=== PATIENT | female | born 1990 | race African-American/Black ===

== ENCOUNTER 2016-05-15 21:12 | Emergency (ER) | payer OTHER ==
[2016-05-15 21:27] VITALS: BP 102/65; BMI 25.0
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
--- NOTE | 2016-05-15 23:41 | CT ---
CT cervical spine without contrast Indication:Neck pain Comparison: Technique: Multiple axial images of the cervical spine were obtained from the skull base to the thor acic inlet without administration of IV contrast. Sagittal and coronal reformats were performed and reviewed. Radiation dose reduction techniques were performed utilizing adjustment for MA/kVP based on patient body size. Findings: Alignment of the cervical spine is maintained. No evidence for acute cortical disruption or subluxa tion can be seen. The posterior elements appear unremarkable. The prevertebral soft tissues are no rmal in their appearance. In addition, the surrounding paraspinous soft tissues are unremarkable. IMPRESSION: 1. No evidence for traumatic injury of the cervical spine. Reported By:
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
== END 2016-05-16 00:02 | disposition home or self-care (01) ==
LOC: ER 21:17
DX: S16.1XXA Strain of muscle, fascia and tendon at neck level, initial encounter (principal); S09.8XXA Other specified injuries of head, initial encounter; S00.83XA Contusion of other part of head, initial encounter; R51 Headache; V87.7XXA Person injured in collision between other specified motor vehicles (traffic), initial encounter
CPT/HCPCS: 36415; 70450; 70486; 72125; 99283

== ENCOUNTER 2016-06-24 20:39 | Emergency (ER) | payer OTHER ==
[2016-06-24 21:00] VITALS: BP 151/85; BMI 21.1
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
[2016-06-24 22:21] LABS: BASOPHILS % (AUTO) 0.4 % (0.2-1.0); EOSINOPHILS # (AUTO) 0.1 x10^3/uL (0.0-0.2); EOSINOPHILS % (AUTO) 1.7 % (0.9-2.9); HEMATOCRIT 37.2 % (36.0-47.0); HEMOGLOBIN 12.7 g/dL (12.0-16.0); LYMPHOCYTES # (AUTO) 2.9 X10^3/uL (1.3-2.9); LYMPHOCYTES % (AUTO) 35.4 % (21.0-51.0); MEAN CORPUSCULAR HEMOGLOBIN 26.3 pg (27.0-34.0); MEAN CORPUSCULAR HGB CONC 34.2 g/dL (33.0-35.0); MEAN CORPUSCULAR VOLUME 76.9 fL (80.0-100.0); MEAN PLATELET VOLUME 8.7 fL (7.4-11.0); MONOCYTES # (AUTO) 0.6 x10^3/uL (0.3-0.8); MONOCYTES % (AUTO) 7.4 % (0.0-13.0); NEUTROPHILS # (AUTO) 4.5 x10^3/uL (2.2-4.8); NEUTROPHILS % (AUTO) 55.1 % (42.0-75.0); PLATELET COUNT 193 X10^3/uL (150.0-450.0); RED BLOOD COUNT 4.83 X10^6/uL (3.5-5.4); RED CELL DISTRIBUTION WIDTH 14.5 % (11.6-16.5); WHITE BLOOD COUNT 8.2 X10^3/uL (3.6-10.0)
[2016-06-24 22:25] LABS: BLOOD UREA NITROGEN 6 mg/dL (7-18); CALCIUM 8.8 mg/dL (8.5-10.1); CARBON DIOXIDE 24.6 mmol/L (21-32); CHLORIDE 107 mmol/L (98-107); CREATININE 0.77 mg/dL (0.55-1.02); GLUCOSE 95 mg/dL (65-99); SODIUM 144 mmol/L (136-145); eGFR BLACK RACES > 60 (>60); eGFR NON BLACK RACES > 60 (>60)
[2016-06-24] MEDS ORDERED: K-LYTE EFFERVESCENT PO ONE (22:32)
[2016-06-24] MEDS ORDERED: K-DUR TAB 20 MEQ PO STA (23:18)
[2016-06-24] MEDS ORDERED: K-DUR TAB 20 MEQ PO ONE (23:22)
== END 2016-06-24 23:26 | disposition home or self-care (01) ==
LOC: ER 20:50
DX: E87.6 Hypokalemia (principal)
CPT/HCPCS: 36415; 80048; 80307; 85025; 99283; 99285; G0434

== ENCOUNTER 2016-07-04 16:59 | Emergency (ER) | payer OTHER ==
[2016-07-04 17:04] VITALS: BP 92/67; BMI 21.9
[2016-07-04] MEDS ORDERED: TORADOL 60 MG VIAL IM ONE (19:32)
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
[2016-07-04] MEDS ORDERED: TORADOL 60 MG VIAL ONE (19:36)
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
== END 2016-07-04 20:33 | disposition home or self-care (01) ==
LOC: ER 17:18
DX: S43.401A Unspecified sprain of right shoulder joint, initial encounter (principal); S46.911A Strain of unspecified muscle, fascia and tendon at shoulder and upper arm level, right arm, initial encounter; Y33.XXXA Other specified events, undetermined intent, initial encounter; Y92.9 Unspecified place or not applicable
CPT/HCPCS: 73030; 96372; 99282; J1885

== ENCOUNTER 2016-10-25 20:04 | Emergency (ER) | payer OTHER ==
[2016-10-25 20:20] VITALS: BP 110/71; BMI 21.7
--- NOTE | 2016-10-25 21:00 | DR.GENAD ---
HPI - PCP Primary Care Physician: ANILA - Complaint/Symptoms Chief Complaint Doctors Comments: Patient states she has been coughing for the past three weeks witn cough with thick sputum production with cold and cough. She denies fever, nausea, vomiting or hematuria. States she has coughed up blood in her sputum today and saw some blood in her urine when she wiped. States she went to the bathroom and had a bowel movement and urinated at the same time and saw blood on the tissure when she wiped. States she is unsure if it was in her urine or bowels. states she had an appointment with Dr. Ewing today but she did not have any transportation. She has been off her Depro provera and she missed her last shot. States he six month old son has had a cold and has been coughing in her face. She smokes one pack daily for seven years. States she is a patient of Dr. High and has an appointment Friday for him. She has been having SOB but denies wheezing. States she has not had any problems with nirav previously. She is having suprapubic pain. Chief Complaint:: FEVER, COUGHING UP GREEN STUFF, COUGHING UP BLOOD, NOSE RUNNING, COUGHING UP SO HARD FEELS LIKE I'M GOING TO THROW UP. PATIENT VOIDED AND HAD A BOWEL MOVEMENT SEEN BLOOD IN THE TOILET. PATIENT DOES NOT KNOW IF IT WAS FROM URINE OR STOOL.LEG PAIN. Self Treatment fo Chief Complaint: COUGH MEDICINE, EATING PEPERMINT - Nurses notes reviewed Nurses Notes Review: Yes - Source History Provided: Patient - Mode of Arrival Mode of Arrival: Ambulatory - Timing Onset of Chief Complaint: 10/21/16 Came on: Gradually - Duration Duration: Intermittent How lon Duration: Weeks - Location Location: suprapubic pain - Severity Severity: Moderate - Modifying Factors Worsens:: movment Improves:: nothing PMH - PMH Past Medical History: Yes Past Medical History: Anxiety, Depression Past Medical History Comment: BACK PAIN Past Surgical History: No - Family History History of Family Medical Conditions: Yes Family Medical History: Diabetes Mellitus, Cancer, [place], Hypertension - Social History Does patient currently use any type of tobacco product: Yes Have you used tobacco products in the last 12 months: No Type of Tobacco Use: Cigarettes How many years tobacco product used: 7 Does any household member use tobacco: No Alcohol Use: Rarely Do you use any recreational Drugs:: No Lives With: Family Lives Where: Home - infectious screening In the last 2 months have you had wt loss of >10#?: NO Have you had fever, night sweats or hemotysis?: No Have you traveled outside the country in the last 6 months?: No Isolation: Standard ROS - Review of Systems Constitutional: No Symptoms Reported. negative: See HPI, Chills, Diaphoresis, Fever, Malaise, Weakness, Irritable, Fatigue, Loss of Appetite, Other Eyes: No Symptoms Reported ENTM: No Symptoms Reported, Nose Discharge, Nose Congestion. negative: See HPI , Ear Pain, Ear Discharge, Pulling on Ears, Hearing Loss, Nose Pain, Epistaxis, Mouth Pain, Mouth Swelling, Loose Teeth, Drooling, Throat Pain, Throat Swelling , Ear Foreign Body Respiratoy: No Symptoms Reported, Productive Cough, Short of Breath Cardiovascular: No Symptoms Reported. negative: See HPI, Chest Pain, Edema, Palpitations, Syncope, Cyanosis, Skin Mottling, Other Gastrointestinal/Abdominal: No Symptoms Reported, Abdominal Pain. negative: See HPI, Constipation, Diarrhea, Nausea, Vomiting, Food Intolerance, Other Genitourinary: No Symptoms Reported. negative: See HPI, Discharge, Dysuria, Frequency, Hematuria, Pain, Bleeding, Other Neurological: No Symptoms Reported Musculoskeletal: No Symptoms Reported Integumentary: No Symptoms Reported. negative: See HPI, Change in Color, Change in Hair/Nails, Dryness, Lesions, Lumps, Rash, Itching, Wound, Bruises, Juandice, Other Endocrine: No Symptoms Reported Psychiatric: No Symptoms Reported. negative: See HPI, Anxiety, Depression, Hallucinations, Excessive crying, Suicidal, Other PE - Vital Signs Vitals: Temperature 98.2 F Pulse Rate 102 Respiratory Rate 20 Blood Pressure [Left Arm] 99/62 Blood Pressure 110/71 O2 Sat by Pulse Oximetry 100 - General Limitations: No Limitations. negative: Language Barrier, Altered Mental Status , Physical Limitation, Other General Appearance: Alert, In No Apparent Distress. negative: Appears Intoxicated, Anxious, Lethargic, Obtunded, In Distress, Obese, Cachectic, Other - Head Head Exam: Normal Inspection, Atraumatic, Normocephalic - Eyes Eye exam: Normal Appearance, PERRL, EOMI. negative: Scleral Icterus, Conjunctival Injection, Nystagmus, Miosis, Mydrasis, Periorbital Swelling, Periorbital Tenderness, Other - ENT ENT Exam: Normal Exam, Normal Oropharynx, Normal External Ear Exam, Mucous Membranes Moist, TM's Normal Bilaterally External Ear Exam: Normal External Inspection. negative: Auricular Hematoma, Auricular Trauma, Mastoid Tenderness, Pain with Movement, External Tenderness, Periauricular Adenopathy, Other TM/Canal Exam: Bilateral Normal Nose Exam: Normal Nose Exam Mouth Exam: Normal Inspection Throat Exam: Normal Inspection. negative: Tonsillar Erythema, Tonsillomegaly, Tonsillar Exudate, R Peritonsillar Mass, L Peritonsillar Mass, Muffled Voice, Other - Neck Neck Exam: Normal Inspection, Full ROM, Trachea Midline - Chest Chest Inspection: Normal Inspection, Symmetric Chest Wall Rise - Respiratory Respiratory Exam: Normal Lung Sounds Bilat. negative: Accessory Muscle Use, Chest Wall Tenderness, Prolonged Expiratory Phase, Respiratory Distress, Stridor , Other Respiratory Exam: Bilateral Clear to Auscultation - Cardiovascular Cardiovascular Exam: Regular Rate, Normal Rhythm. negative: Bradycardia, Tachycardia, Irregular Rhythm, Normal Heart Sounds, Systolic Murmur, Diastolic Murmur, Rubs, Gallop, Clicks, JVD, +S1, +S2, +S3, +S4, Other - Abdominal Exam Abdominal Exam: Normal Inspection, Normal Bowel Sounds, Soft Abdominal Tenderness: Epigastrium, Moderate - Extremities Extremities Exam: Normal Inspection, Full ROM, Normal Capillary Refill. negative: Tenderness, Edema, Joint Swelling, Calf Tenderness, Other - Back Back Exam: Normal Inspection, Full ROM. negative: Tenderness, (R) CVA Tenderness, (L) CVA Tenderness, Muscle Spasm, Paraspinal Tenderness, Vertebral Tenderness, Rashes, (R) Sciatic Notch Tenderness, (L) Sciatic Notch Tendern, (R ) Straight Leg Raise, (L) Straight Leg Raise, Other - Neurologic Neurological Exam: Alert, Oriented X3, CN II-XII Intact, Normal Gait, Reflexes Normal - Psychiatric Psychiatric Exam: Normal Affect, Normal Mood. negative: Depressed, Agitated, Anxious, Flat Affect, Manic, Homicidal Ideation, Suicidal Ideation, Other - Skin Skin Exam: Warm, Dry, Intact, Normal Color ROR - Labs Reviewed Laboratory Results Reviewed?: Yes (all labs and x-ray results reviewed and discussed with patient) Result Diagrams: 10/25/16 21:10/25/16 21:01 Laboratory: WBC 8.6 X10^3/uL (3.6-10.0) 10/25/16 21: RBC 4.73 X10^6/uL (3.5-5.4) 10/25/16 21:01 Hgb 13.0 g/dL (12.0-16.0) 10/25/16 21:01 Hct 37.4 % (36.0-47.0) 10/25/16 21:01 MCV 79.1 fL (80.0-100.0) L 10/25/16 21:01 MCH 27.4 pg (27.0-34.0) 10/25/16 21: MCHC 34.7 g/dL (33.0-35.0) 10/25/16 21: RDW 14.4 % (11.6-16.5) 10/25/16 21:01 Plt Count 206 X10^3/uL (150.0-450.0) 10/25/16 21:01 MPV 9.3 fL (7.4-11.0) 10/25/16 21:01 Neut % 70.5 % (42.0-75.0) 10/25/16 21: Lymph % 21.1 % (21.0-51.0) 10/25/16 21:01 Corson % 4.7 % (0.0-13.0) 10/25/16 21:01 Eos % 2.6 % (0.9-2.9) 10/25/16 21:01 Baso % 1.1 % (0.2-1.0) H 10/25/16 21:01 Neut # 6.1 x10^3/uL (2.2-4.8) H 10/25/16 21:01 Lymph # 1.8 X10^3/uL (1.3-2.9) 10/25/16 21:01 Corson # 0.4 x10^3/uL (0.3-0.8) 10/25/16 21:01 Eos # 0.2 x10^3/uL (0.0-0.2) 10/25/16 21:01 Baso # 0.1 X10^3/uL (0.0-0.1) 10/25/16 21:01 Absolute Nucleated RBC 0.0 /100WBC 10/25/16 21:01 Sodium 140 mmol/L (136-145) 10/25/16 21:01 Corrected Sodium TNP 10/25/16 21:01 Potassium 4.1 mmol/L (3.5-5.1) 10/25/16 21:01 Chloride 105 mmol/L (98-107) 10/25/16 21:01 Carbon Dioxide 27.5 mmol/L (21-32) 10/25/16 21:01 BUN 7 mg/dL (7-18) 10/25/16 21:01 Creatinine 0.89 mg/dL (0.55-1.02) 10/25/16 21:01 Est GFR (MDRD) Af Amer > 60 (>60) 10/25/16 21:01 Est GFR (MDRD) Non-Af > 60 (>60) 10/25/16 21:01 Glucose 85 mg/dL (65-99) 10/25/16 21:01 Calcium 9.0 mg/dL (8.5-10.1) 10/25/16 21:01 Corrected Calcium TNP 10/25/16 21:01 Total Bilirubin 0.10 mg/dL (0.2-1.0) L 10/25/16 21:01 AST 16 Units/L (15-37) 10/25/16 21:01 ALT 23 Units/L (12-78) 10/25/16 21:01 Alkaline Phosphatase 79 Units/L (46-116) 10/25/16 21:01 Total Protein 7.7 g/dL (6.4-8.2) 10/25/16 21:01 Albumin 3.6 g/dL (3.4-5.0) 10/25/16 21:01 Globulin 4.1 g/dL (2.5-4.5) 10/25/16 21:01 Albumin/Globulin Ratio 0.9 Ratio (1.1-2.1) L 10/25/16 21:01 Amylase 55 Units/L (25-115) 10/25/16 21:01 Lipase 80 Units/L (73-393) 10/25/16 21:01 HCG, Qual Negative <10 mIU/mL 10/25/16 21:01 Specimen Type Clean catch urine 10/25/16 20:46 Urine Color Yellow (YELLOW) 10/25/16 20:46 Urine Appearance Slightly hazy (CLEAR) 10/25/16 20:46 Urine pH 8.0 (5.0 - 8.0) 10/25/16 20:46 Ur Specific Debary 1.015 (1.000-1.030) 10/25/16 20:46 Urine Protein Negative (NEGATIVE) 10/25/16 20:46 Urine Glucose (UA) Negative (NEGATIVE) 10/25/16 20:46 Urine Ketones Negative (NEGATIVE) 10/25/16 20:46 Urine Occult Blood Negative (NEGATIVE) 10/25/16 20:46 Urine Nitrite Negative (NEGATIVE) 10/25/16 20:46 Urine Bilirubin Negative (NEGATIVE) 10/25/16 20:46 Urine Urobilinogen 1+ (NORMAL) 10/25/16 20:46 Ur Leukocyte Esterase 1+ (NEGATIVE) 10/25/16 20:46 Urine RBC 0-3 /HPF (NEGATIVE) 10/25/16 20:46 Urine WBC 10-15 /HPF (NEGATIVE) 10/25/16 20:46 Ur Squamous Epith Cells Moderate /HPF (NEGATIVE) 10/25/16 20:46 Urine Bacteria 1+ /HPF (NEGATIVE) 10/25/16 20:46 Ur Culture Indicated? Yes/culture set up 10/25/16 20:46 Urine Opiates Screen Negative (NEG=<300) 10/25/16 20:46 Urine Methadone Screen Negative (NEG=<300) 10/25/16 20:46 Ur Barbiturates Screen Positive (NEG=<200) A 10/25/16 20:46 Ur Phencyclidine Scrn Negative (NEG=<25) 10/25/16 20:46 Ur Amphetamines Screen Negative (NEG=<1000) 10/25/16 20:46 U Benzodiazepines Scrn Positive (NEG=<200) A 10/25/16 20:46 Urine Cocaine Screen Negative (NEG=<300) 10/25/16 20:46 U Marijuana (THC) Screen Negative (NEG=<50) 10/25/16 20:46 - XRAY XRAY Interpreted by: Radiologist (CT abdomen/pelvis: No acute abnormality. Vague patchy opacity in the left lung base suggest early pneumonia) XRAY Findings: CXR: no acute cardiopulmonary changes noted - Diagnosis Discharge Problem: Urinary tract infection Pneumonia Qualifiers: Pneumonia type: due to unspecified organism - Discharge Plan Disposition: 01 HOME, SELF-CARE Condition: Stable Prescriptions: Guaifenesin-Codeine [ROBITUSSIN AC SYRUP (W/CODEINE) *] 10 ml PO Q6H PRN #120 ml PRN Reason: Cough/Congestion Levofloxacin [LEVAQUIN TAB 500 MG *] 500 mg PO DAILY #10 tab - Follow ups/Referrals Follow ups/Referrals: Crystal HIGH [Primary Care Provider] - 3 days - Instructions Instructions: Urinary Tract Infection, Adult, Community-Acquired Pneumonia, Adult, [id number]
[2016-10-25 21:12] LABS: BASOPHILS # (AUTO) 0.1 X10^3/uL (0.0-0.1); BASOPHILS % (AUTO) 1.1 % (0.2-1.0); EOSINOPHILS # (AUTO) 0.2 x10^3/uL (0.0-0.2); EOSINOPHILS % (AUTO) 2.6 % (0.9-2.9); HEMATOCRIT 37.4 % (36.0-47.0); LYMPHOCYTES # (AUTO) 1.8 X10^3/uL (1.3-2.9); LYMPHOCYTES % (AUTO) 21.1 % (21.0-51.0); MEAN CORPUSCULAR HEMOGLOBIN 27.4 pg (27.0-34.0); MEAN CORPUSCULAR HGB CONC 34.7 g/dL (33.0-35.0); MEAN CORPUSCULAR VOLUME 79.1 fL (80.0-100.0); MEAN PLATELET VOLUME 9.3 fL (7.4-11.0); MONOCYTES # (AUTO) 0.4 x10^3/uL (0.3-0.8); MONOCYTES % (AUTO) 4.7 % (0.0-13.0); NEUTROPHILS # (AUTO) 6.1 x10^3/uL (2.2-4.8); NEUTROPHILS % (AUTO) 70.5 % (42.0-75.0); PLATELET COUNT 206 X10^3/uL (150.0-450.0); RED BLOOD COUNT 4.73 X10^6/uL (3.5-5.4); RED CELL DISTRIBUTION WIDTH 14.4 % (11.6-16.5); WHITE BLOOD COUNT 8.6 X10^3/uL (3.6-10.0)
[2016-10-25 21:16] LABS: BILIRUBIN,URINE NEGATIVE (NEGATIVE); BLOOD/HEMOGLOBIN,URINE NEGATIVE (NEGATIVE); GLUCOSE, URINE NEGATIVE (NEGATIVE); KETONES,URINE NEGATIVE (NEGATIVE); LEUKOCYTE ESTERASE ,URINE 1+ (NEGATIVE); NITRITES,URINE NEGATIVE (NEGATIVE); PROTEIN,URINE NEGATIVE (NEGATIVE); UROBILINOGEN,URINE 1+ (NORMAL)
[2016-10-25 21:24] LABS: ALANINE AMINOTRANSFERASE 23 Units/L (12-78); ALBUMIN 3.6 g/dL (3.4-5.0); ALKALINE PHOSPHATASE 79 Units/L (46-116); ASPARTATE AMINO TRANSFERASE 16 Units/L (15-37); BLOOD UREA NITROGEN 7 mg/dL (7-18); CARBON DIOXIDE 27.5 mmol/L (21-32); CHLORIDE 105 mmol/L (98-107); CREATININE 0.89 mg/dL (0.55-1.02); SODIUM 140 mmol/L (136-145); TOTAL PROTEIN 7.7 g/dL (6.4-8.2); eGFR BLACK RACES > 60 (>60); eGFR NON BLACK RACES > 60 (>60)
[2016-10-25 21:37] LABS: APPEARANCE,URINE SLIGHTLY HAZY (CLEAR); BACTERIA,URINE 1+ /HPF (NEGATIVE); COLOR,URINE YELLOW (YELLOW); RBC,URINE 0-3 /HPF (NEGATIVE); SQUAMOUS EPITHELIAL CELL,UR MODERATE /HPF (NEGATIVE)
[2016-10-25 21:39] LABS: SERUM PREGNANCY TEST, QUAL NEGATIVE <10 mIU/mL
--- NOTE | 2016-10-25 21:44 | CT ---
CT abdomen and pelvis without contrast Indication: Coughing with hematemesis. Pelvic pain chronically. Technique: Helical images through the abdomen and pelvis without contrast. Coronal and sagittal refor mats provided. Findings: No similar priors available. Review of bone windows demonstrates no destructive osseous les ion. [id number] limited in motion limited images through lower chest shows patchy left lower lung opaci ty, probably dependent atelectasis but early pneumonia not completely excluded given history. Abdomen: Within limits of a noncontrast study, the liver, spleen, adrenal glands and pancreas appear grossly normal. The small bowel demonstrates no acute abnormality. No acute colonic abnormality seen. Appendix is normal. Vasculature is free of plaque. Left kidney appears normal without hydroureterone phrosis. Motion artifact obscures some detail but there is questionable fullness to the right renal c ollecting system. No convincing obstructing stone identified. No severe hydronephrosis seen. Stomach appears grossly normal. The gallbladder is probably collapse, not well seen. Pelvis: Urinary bladder and rectum are normal. Uterus and adnexal region show no acute abnormality. Impression: 1. Motion limited study and lack of contrast limited study shows no convincing acute abnormality to e xplain the patient's pelvic pain. Correlate with pelvic exam findings. 2. Vague patchy opacity in the left lung base is probably accentuated due to motion but correlate cli nically for signs of early pneumonia. Reported By:
[2016-10-25 21:57] LABS: AMYLASE 55 Units/L (25-115); LIPASE 80 Units/L (73-393)
[2016-10-25] MEDS ORDERED: ROCEPHIN VIAL 1 GM IM ONE (22:36)
[2016-10-25] MEDS ORDERED: ROBITUSSIN AC PO STA (22:37)
[2016-10-25] MEDS ORDERED: LEVAQUIN TAB 500 MG ONE (22:54)
[2016-10-25] MEDS ORDERED: ROBITUSSIN AC ONE (22:55)
[2016-10-25] MEDS ORDERED: ROCEPHIN VIAL 1 GM ONE (22:55)
[2016-10-25] MEDS ORDERED: LEVAQUIN TAB 500 MG PO SCH (23:00)
--- NOTE | 2016-10-25 23:35 | RAD ---
Chest PA and lateral Indication: Cough with thick sputum. Findings: There is no pneumothorax, effusion or consolidation. Heart size is normal. Impression: No acute chest process. Reported By:
== END 2016-10-25 23:15 | disposition home or self-care (01) ==
LOC: ER 20:24
DX: J18.9 Pneumonia, unspecified organism (principal); N39.0 Urinary tract infection, site not specified; R10.13 Epigastric pain
CPT/HCPCS: 36415; 71020; 74176; 80053; 80307; 81001; 82150; 83690; 84703; 85025; 87086; 96372; 99282; 99283; G0434; J0696

== ENCOUNTER 2016-10-26 00:20 | Emergency (ER) | payer OTHER ==
[2016-10-26] MEDS ORDERED: ADRENALINE CHL INJ IM ONE (00:30)
[2016-10-26] MEDS ORDERED: ADRENALINE CHL INJ ONE (00:31)
[2016-10-26] MEDS ORDERED: BENADRYL INJ 50 MG VIAL IVP STA (00:31)
[2016-10-26] MEDS ORDERED: PEPCID 20 MG IV PREMIX* 20 MG/50 ML BAG IV ONE ×2 (00:32→00:42)
[2016-10-26] MEDS ORDERED: SOLU-Medrol 125 MG VIAL IVP ONE (00:32)
[2016-10-26 00:34] VITALS: BMI 21.7
--- NOTE | 2016-10-26 00:34 | DR.GENAD ---
HPI - Complaint/Symptoms Chief Complaint Doctors Comments: Patient states she has been itching and has hives since walking home after getting a Rocephin shot and Levaquin for infection. States she has had problems with antibiotics when she was and they usually give her ampicillin. She denies SOB, chest pain, cold, cough or wheezing. States she has been itching with hives on her back, arms and legs. She has not taken any medicines for the rash. She denies fever, chills, nausea or vomiting. - Nurses notes reviewed Nurses Notes Review: Yes - Source History Provided: Patient, Family Member - Mode of Arrival Mode of Arrival: Ambulatory - Timing Came on: Gradually - Duration Duration: Constant How lon Duration: Hours - Location Location: diffusely arms and legs - Modifying Factors Worsens:: nothing Improves:: nothing PMH - PMH Past Medical History: Anxiety, Depression Past Surgical History: No - Family History Family Medical History: Diabetes Mellitus, Cancer, [place], Hypertension - Social History Do you use any recreational Drugs:: No ROS - Review of Systems Constitutional: No Symptoms Reported. negative: See HPI, Chills, Diaphoresis, Fever, Malaise, Weakness, Irritable, Fatigue, Loss of Appetite, Other Eyes: No Symptoms Reported. negative: See HPI, Eye Pain, Blurred Vision, Tearing, Discharge, Photophobia, Diplopia, Other ENTM: No Symptoms Reported Respiratoy: No Symptoms Reported, Non-Productive Cough Cardiovascular: No Symptoms Reported. negative: See HPI, Chest Pain, Edema, Palpitations, Syncope, Cyanosis, Skin Mottling, Other Gastrointestinal/Abdominal: No Symptoms Reported. negative: See HPI, Abdominal Pain, Constipation, Diarrhea, Nausea, Vomiting, Food Intolerance, Other Genitourinary: No Symptoms Reported. negative: See HPI, Discharge, Dysuria, Frequency, Hematuria, Pain, Bleeding, Other Neurological: No Symptoms Reported Musculoskeletal: No Symptoms Reported. negative: See HPI, Back Pain, Gout, Joint Pain, Joint Swelling, Muscle Pain, Muscle Stiffness, Neck Pain, Right, Left, Neck, Chest wall, Rib(s), Back, Shoulder, Arm, Elbow, Forearm, Wrist, Hand , Pelvis, Hip, Leg, Knee, Ankle, Foot, Other Integumentary: No Symptoms Reported, Rash, Itching (diffuse hives) Hematologic/Lymphatic: No Symptoms Reported. negative: See HPI, Anemia, Blood Clots, Easy Bleeding, Easy Bruising, Swollen Glands, Lymphadenopathy, Other Endocrine: No Symptoms Reported Psychiatric: No Symptoms Reported. negative: See HPI, Anxiety, Depression, Hallucinations, Excessive crying, Suicidal, Other PE - Vital Signs Vitals: Blood Pressure [Left Arm] 99/62 Blood Pressure 110/71 - General Limitations: No Limitations General Appearance: Alert, In Distress (mild) - Head Head Exam: Normal Inspection, Atraumatic, Normocephalic - Eyes Eye exam: Normal Appearance, PERRL, EOMI. negative: Scleral Icterus, Conjunctival Injection, Nystagmus, Miosis, Mydrasis, Periorbital Swelling, Periorbital Tenderness, Other - ENT ENT Exam: Normal Exam, Normal Oropharynx, Normal External Ear Exam, Mucous Membranes Moist, TM's Normal Bilaterally External Ear Exam: Normal External Inspection TM/Canal Exam: Bilateral Normal Nose Exam: Normal Nose Exam Mouth Exam: Normal Inspection. negative: Drooling, Trismus, Lip Swelling, Tongue Elevation, Tongue Swelling, Laceration, Other Throat Exam: Normal Inspection - Neck Neck Exam: Normal Inspection, Full ROM, Trachea Midline. negative: Tenderness, Meningismus, Lymphadenopathy, Thyromegaly, Other - Chest Chest Inspection: Normal Inspection, Symmetric Chest Wall Rise. negative: Tenderness, Rash, Abscess, Other - Respiratory Respiratory Exam: Normal Lung Sounds Bilat Respiratory Exam: Bilateral Clear to Auscultation - Cardiovascular Cardiovascular Exam: Regular Rate, Normal Rhythm, Normal Heart Sounds - Abdominal Exam Abdominal Exam: Normal Inspection, Normal Bowel Sounds, Soft Abdominal Tenderness: negative: RUQ, RLQ, LUQ, LLQ, Epigastrium, Suprapubic, Diffuse, Mild, Moderate, Severe, Other - Extremities Extremities Exam: Normal Inspection, Full ROM, Normal Capillary Refill. negative: Tenderness, Edema, Joint Swelling, Calf Tenderness, Other - Back Back Exam: Normal Inspection, Full ROM. negative: Tenderness, (R) CVA Tenderness, (L) CVA Tenderness, Muscle Spasm, Paraspinal Tenderness, Vertebral Tenderness, Rashes, (R) Sciatic Notch Tenderness, (L) Sciatic Notch Tendern, (R ) Straight Leg Raise, (L) Straight Leg Raise, Other - Neurologic Neurological Exam: Alert, Oriented X3, CN II-XII Intact, Normal Gait, Reflexes Normal - Psychiatric Psychiatric Exam: Normal Affect, Normal Mood. negative: Depressed, Agitated, Anxious, Flat Affect, Manic, Homicidal Ideation, Suicidal Ideation, Other - Skin Skin Exam: Warm, Dry, Intact, Normal Color, Rash (diffuse hives arms, legs, abdomen and back) Course - Reevaluation 1st: Improved - Education/Counseling Education/Counseling: Patient, Family Educated On: Treatment, Diagnosis, Needs for Follow Up - Diagnosis Discharge Problem: Allergic reaction caused by a drug, Pneumonia - Discharge Plan Disposition: HOME, SELF-CARE Condition: Stable Prescriptions: Amoxicillin & Pot Clavulanate [AUGMENTIN TAB 875 mg/125 mg *] 1 tab PO BID #20 tab Diphenhydramine HCl [BENADRYL 50 MG CAP *] 50 mg PO Q8H #30 cap Loratadine [Claritin] 10 mg PO DAILY #30 tab Ranitidine HCl [ZANTAC TAB 150 MG *] 150 mg PO BID #40 tab - Follow ups/Referrals Follow ups/Referrals: Crystal HIGH [Primary Care Provider] - 3 days - Instructions Instructions: Allergies, [id number], Angioedema, Pruritus
[2016-10-26 00:39] VITALS: BP 101/67
[2016-10-26] MEDS ORDERED: SOLU-Medrol 125 MG VIAL ONE (00:43)
[2016-10-26] MEDS ORDERED: BENADRYL INJ 50 MG VIAL ONE (00:43)
== END 2016-10-26 01:32 | disposition home or self-care (01) ==
LOC: ER 00:20
DX: J18.9 Pneumonia, unspecified organism (principal); T78.40XA Allergy, unspecified, initial encounter
CPT/HCPCS: 96365; 96372; 96374; 96375; 99282; 99283; A4222; S0028; J0170; J1200; J2930

== ENCOUNTER 2017-03-16 15:55 | Emergency (ER) | payer OTHER ==
[2017-03-16 16:05] VITALS: BP 116/74; BMI 20.9
--- NOTE | 2017-03-16 16:44 | RAD ---
Indication: Pain Exam: Right ankle series Technique: AP, lateral, and oblique views. Findings: The ankle mortise is intact. No fracture or dislocation is seen. There is moderate soft tis roma swelling around the ankle extending laterally. Impression: Soft tissue swelling around the ankle with no acute bony abnormality seen. Reported By:
--- NOTE | 2017-03-16 16:45 | RAD ---
Indication: Pain Exam: Left hand series. Technique: AP, lateral, and oblique views. Findings: No fracture dislocation is seen. The joint spaces are intact. The carpal bones are intact. The soft tissues are normal. Impression: No abnormality seen. Reported By:
--- NOTE | 2017-03-16 16:56 | DR.GENAD ---
HPI - PCP Primary Care Physician: NFD - Complaint/Symptoms Chief Complaint Doctors Comments: Patient states that she hurt her left thumb 3- 4 months ago and it still hurts. Chief Complaint:: PT C/O RT ANKLE PAIN AND LT THUMB PAIN. PT STATES SHE ROLLED HER ANKLE LAST NIGHT. PT STATES HER ANKLE HURTS REALLY BAD. - Source History Provided: Patient - Mode of Arrival Mode of Arrival: Ambulatory - Timing Onset of Chief Complaint: 03/15/17 PMH - PMH Past Medical History: Yes Past Medical History: Anxiety, Depression Past Surgical History: No - Family History History of Family Medical Conditions: Yes Family Medical History: Diabetes Mellitus, Cancer, [place], Hypertension - Social History Does patient currently use any type of tobacco product: Yes Have you used tobacco products in the last 12 months: Yes Type of Tobacco Use: Cigarettes Does any household member use tobacco: Yes Alcohol Use: None Do you use any recreational Drugs:: No Lives With: Family Lives Where: Home - infectious screening In the last 2 months have you had wt loss of >10#?: NO Have you had fever, night sweats or hemotysis?: No Have you traveled outside the country in the last 6 months?: No Isolation: Standard ROS - Review of Systems Eyes: No Symptoms Reported ENTM: No Symptoms Reported Respiratoy: No Symptoms Reported Cardiovascular: No Symptoms Reported Gastrointestinal/Abdominal: No Symptoms Reported Genitourinary: No Symptoms Reported Neurological: No Symptoms Reported Musculoskeletal: Ankle (right ankle and left thumb) Integumentary: No Symptoms Reported Hematologic/Lymphatic: No Symptoms Reported Endocrine: No Symptoms Reported Psychiatric: No Symptoms Reported All Other Systems: Reviewed and Negative PE - Vital Signs Vitals: Temperature 98.1 F Pulse Rate 103 Respiratory Rate 20 Blood Pressure [Left Arm] 99/62 Blood Pressure 116/74 O2 Sat by Pulse Oximetry 99 - General General Appearance: Alert, In No Apparent Distress - Head Head Exam: Normal Inspection, Atraumatic - Eyes Eye exam: Normal Appearance, PERRL, EOMI - ENT ENT Exam: Normal Exam External Ear Exam: Normal External Inspection TM/Canal Exam: Bilateral Normal Nose Exam: Normal Nose Exam Mouth Exam: Normal Inspection Throat Exam: Normal Inspection - Neck Neck Exam: Normal Inspection, Full ROM - Chest Chest Inspection: Normal Inspection - Respiratory Respiratory Exam: Normal Lung Sounds Bilat Respiratory Exam: Bilateral Clear to Auscultation - Cardiovascular Cardiovascular Exam: Regular Rate, Normal Rhythm - Abdominal Exam Abdominal Exam: Normal Inspection, Normal Bowel Sounds Abdominal Tenderness: negative: RUQ, RLQ, LUQ, LLQ, Epigastrium, Suprapubic, Diffuse, Mild, Moderate, Severe, Other - Extremities Extremities Exam: Joint Swelling (right ankle), Other (left thumb pain w/o swelling) - Back Back Exam: Normal Inspection - Neurologic Neurological Exam: Alert, Oriented X3, CN II-XII Intact - Psychiatric Psychiatric Exam: Normal Affect, Normal Mood - Skin Skin Exam: Warm, Dry, Intact ROR - XRAY XRAY Interpreted by: Radiologist (Thumb: no abnormality, Right Ankle: soft tissue swelling w/o fracture) - Diagnosis Discharge Problem: Right ankle sprain Qualifiers: Encounter type: initial encounter Involved ligament of ankle: tibiofibular ligament Qualified Code(s): S93.431A - Sprain of tibiofibular ligament of right ankle, initial encounter - Discharge Plan Condition: Stable - Follow ups/Referrals Follow ups/Referrals: NFD,None [Primary Care Provider] - 3 days - Instructions
== END 2017-03-16 17:10 | disposition home or self-care (01) ==
LOC: ER 15:55
DX: S93.431A Sprain of tibiofibular ligament of right ankle, initial encounter (principal); Y33.XXXA Other specified events, undetermined intent, initial encounter; Y92.9 Unspecified place or not applicable
CPT/HCPCS: 73130; 73610; 99282

== ENCOUNTER 2017-04-03 15:53 | Emergency (ER) | payer OTHER ==
[2017-04-03 16:04] VITALS: BP 113/71; BMI 20.3
[2017-04-03] MEDS ORDERED: TORADOL 60 MG VIAL IM ONE (16:52)
--- NOTE | 2017-04-03 16:52 | DR.GENAD ---
HPI - PCP Primary Care Physician: NFD - Complaint/Symptoms Chief Complaint Doctors Comments: Low back back pain related to lifting at work. Other complain is of a possible lump in her right breast. She noticed this yesterday. She denies galactorrhea. 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 - Nurses notes reviewed Nurses Notes Review: Yes - Source History Provided: Patient - Mode of Arrival Mode of Arrival: Ambulatory - Timing Onset of Chief Complaint: 04/02/17 PMH - PMH Past Medical History: No Past Medical History: Anxiety, Depression Past Surgical History: No - Family History History of Family Medical Conditions: No Family Medical History: Diabetes Mellitus, Cancer, [place], Hypertension - Social History Does patient currently use any type of tobacco product: Yes Have you used tobacco products in the last 12 months: Yes Type of Tobacco Use: None How many years tobacco product used: 9 Does any household member use tobacco: No Alcohol Use: None Do you use any recreational Drugs:: No Lives With: Family Lives Where: Home - infectious screening In the last 2 months have you had wt loss of >10#?: NO Have you had fever, night sweats or hemotysis?: No Have you traveled outside the country in the last 6 months?: No Isolation: Standard ROS - Review of Systems Constitutional: No Symptoms Reported Eyes: No Symptoms Reported ENTM: No Symptoms Reported Respiratoy: No Symptoms Reported Cardiovascular: No Symptoms Reported Gastrointestinal/Abdominal: No Symptoms Reported Genitourinary: No Symptoms Reported Neurological: No Symptoms Reported Musculoskeletal: Back Pain Integumentary: Lumps (right breast) Hematologic/Lymphatic: No Symptoms Reported Endocrine: No Symptoms Reported Psychiatric: No Symptoms Reported PE - Vital Signs Vitals: Temperature 99.6 F Pulse Rate 90 Respiratory Rate 20 Blood Pressure [Left Arm] 99/62 Blood Pressure 113/71 O2 Sat by Pulse Oximetry 100 - General Limitations: No Limitations General Appearance: Alert, In No Apparent Distress - Head Head Exam: Normal Inspection - Eyes Eye exam: Normal Appearance - ENT ENT Exam: Normal Exam - Neck Neck Exam: Normal Inspection - Chest Chest Inspection: Normal Inspection, Tenderness (right mid costo-chroral areas, point tenderness. No breast lump palpated. ) - Respiratory Respiratory Exam: Normal Lung Sounds Bilat - Cardiovascular Cardiovascular Exam: Regular Rate, Normal Rhythm - Abdominal Exam Abdominal Exam: Normal Inspection, Normal Bowel Sounds, Soft - Extremities Extremities Exam: Normal Inspection - Back Back Exam: Normal Inspection - Neurologic Neurological Exam: Alert, Oriented X3 - Psychiatric Psychiatric Exam: Normal Affect, Normal Mood - Skin Skin Exam: Warm, Dry, Intact, Normal Color - Diagnosis Discharge Problem: Costochondral chest pain, Back pain - Discharge Plan Disposition: HOME, SELF-CARE Condition: Stable - Follow ups/Referrals Follow ups/Referrals: NFD,None [Primary Care Provider] - 3 days - Instructions
[2017-04-03] MEDS ORDERED: TORADOL 60 MG VIAL ONE (17:04)
== END 2017-04-03 18:20 | disposition home or self-care (01) ==
LOC: ER 16:20
DX: R07.1 Chest pain on breathing (principal); M54.5 Low back pain
CPT/HCPCS: 96372; 99282; J1885

== ENCOUNTER 2017-05-25 23:06 | Emergency (ER) | payer OTHER ==
[2017-05-25 23:18] VITALS: BMI 20.1
[2017-05-25 23:56] LABS: BASOPHILS % (AUTO) 0.7 % (0.2-1.0); EOSINOPHILS # (AUTO) 0.3 x10^3/uL (0.0-0.2); HEMATOCRIT 34.7 % (36.0-47.0); HEMOGLOBIN 11.8 g/dL (12.0-16.0); LYMPHOCYTES # (AUTO) 2.6 X10^3/uL (1.3-2.9); LYMPHOCYTES % (AUTO) 37.1 % (21.0-51.0); MEAN CORPUSCULAR HEMOGLOBIN 27.4 pg (27.0-34.0); MEAN CORPUSCULAR VOLUME 80.8 fL (80.0-100.0); MEAN PLATELET VOLUME 9.1 fL (7.4-11.0); MONOCYTES # (AUTO) 0.6 x10^3/uL (0.3-0.8); MONOCYTES % (AUTO) 7.9 % (0.0-13.0); NEUTROPHILS # (AUTO) 3.6 x10^3/uL (2.2-4.8); NEUTROPHILS % (AUTO) 50.3 % (42.0-75.0); PLATELET COUNT 181 X10^3/uL (150.0-450.0); RED CELL DISTRIBUTION WIDTH 14.6 % (11.6-16.5)
--- NOTE | 2017-05-25 23:57 | DR.GENAD ---
HPI - PCP Primary Care Physician: nfd - Complaint/Symptoms Chief Complaint Doctors Comments: 27 y/o female here with suicidal ideations and plans. She states that shee is tired of living. She would rather walk into traffic and get it over with. She states she has 3 kids that she is not seeing and cannot see. It pains that she can not be and is not being a mother to the children. She lives with her mom currently, they are not getting along and her belongings are on the porsch. She state states that she has nowhere to go. Chief Complaint:: depression and anxiety - Nurses notes reviewed Nurses Notes Review: Yes - Source History Provided: Patient - Mode of Arrival Mode of Arrival: Ambulatory - Timing Onset of Chief Complaint: 02/14/17 PMH - PMH Past Medical History: Yes Past Medical History: Anxiety, Depression Past Surgical History: No - Family History History of Family Medical Conditions: Yes Family Medical History: Diabetes Mellitus, Cancer, [place], Hypertension - Social History Does patient currently use any type of tobacco product: Yes Have you used tobacco products in the last 12 months: Yes Type of Tobacco Use: Cigarettes Does any household member use tobacco: No Alcohol Use: Occasionally Do you use any recreational Drugs:: Yes (pills) Lives With: Other Lives Where: patient states here and there - infectious screening In the last 2 months have you had wt loss of >10#?: NO Have you had fever, night sweats or hemotysis?: No Have you traveled outside the country in the last 6 months?: No Isolation: Standard ROS - Review of Systems Constitutional: No Symptoms Reported Eyes: No Symptoms Reported ENTM: No Symptoms Reported Respiratoy: No Symptoms Reported Cardiovascular: No Symptoms Reported Gastrointestinal/Abdominal: No Symptoms Reported Genitourinary: No Symptoms Reported Neurological: No Symptoms Reported Musculoskeletal: No Symptoms Reported Integumentary: No Symptoms Reported Hematologic/Lymphatic: No Symptoms Reported Endocrine: No Symptoms Reported Psychiatric: Depression, Suicidal All Other Systems: Reviewed and Negative PE - Vital Signs Vitals: Temperature 97.3 F Pulse Rate 105 Respiratory Rate 18 Blood Pressure [Left Arm] 99/62 Blood Pressure 122/76 O2 Sat by Pulse Oximetry 100 - General Limitations: No Limitations General Appearance: Alert, In No Apparent Distress - Head Head Exam: Normal Inspection - Eyes Eye exam: Normal Appearance - ENT ENT Exam: Normal Exam TM/Canal Exam: Bilateral Normal Nose Exam: Normal Nose Exam Mouth Exam: Normal Inspection Throat Exam: Normal Inspection - Neck Neck Exam: Normal Inspection, Full ROM, Trachea Midline - Chest Chest Inspection: Normal Inspection, Symmetric Chest Wall Rise - Respiratory Respiratory Exam: Normal Lung Sounds Bilat - Cardiovascular Cardiovascular Exam: Regular Rate, Normal Rhythm, +S1, +S2 - Abdominal Exam Abdominal Exam: Normal Inspection, Normal Bowel Sounds, Soft - Extremities Extremities Exam: Normal Inspection, Full ROM - Back Back Exam: Normal Inspection - Neurologic Neurological Exam: Alert, Oriented X3 - Psychiatric Psychiatric Exam: Depressed, Flat Affect, Suicidal Ideation - Skin Skin Exam: Warm, Dry, Intact, Normal Color ROR - Labs Reviewed Result Diagrams: 05/25/17 23:47 05/25/17 23:47 Laboratory: WBC 7.0 X10^3/uL (3.6-10.0) 05/25/17 23:47 RBC 4.30 X10^6/uL (3.5-5.4) 05/25/17 23:47 Hgb 11.8 g/dL (12.0-16.0) L 05/25/17 23:47 Hct 34.7 % (36.0-47.0) L 05/25/17 23:47 MCV 80.8 fL (80.0-100.0) 05/25/17 23:47 MCH 27.4 pg (27.0-34.0) 05/25/17 23:47 MCHC 34.0 g/dL (33.0-35.0) 05/25/17 23:47 RDW 14.6 % (11.6-16.5) 05/25/17 23:47 Plt Count 181 X10^3/uL (150.0-450.0) 05/25/17 23:47 MPV 9.1 fL (7.4-11.0) 05/25/17 23:47 Neut % (Auto) 50.3 % (42.0-75.0) 05/25/17 23:47 Lymph % (Auto) 37.1 % (21.0-51.0) 05/25/17 23:47 [place] % (Auto) 7.9 % (0.0-13.0) 05/25/17 23:47 Eos % (Auto) 4.0 % (0.9-2.9) H 05/25/17 23:47 Baso % (Auto) 0.7 % (0.2-1.0) 05/25/17 23:47 Neut # (Auto) 3.6 x10^3/uL (2.2-4.8) 05/25/17 23:47 Lymph # (Auto) 2.6 X10^3/uL (1.3-2.9) 05/25/17 23:47 [place] # (Auto) 0.6 x10^3/uL (0.3-0.8) 05/25/17 23:47 Eos # (Auto) 0.3 x10^3/uL (0.0-0.2) H 05/25/17 23:47 Baso # (Auto) 0.0 X10^3/uL (0.0-0.1) 05/25/17 23:47 Absolute Nucleated RBC 0.1 /100WBC 05/25/17 23:47 Sodium 143 mmol/L (136-145) 05/25/17 23:47 Corrected Sodium TNP 05/25/17 23:47 Potassium 3.2 mmol/L (3.5-5.1) L 05/25/17 23:47 Chloride 107 mmol/L (98-107) 05/25/17 23:47 Carbon Dioxide 27.0 mmol/L (21-32) 05/25/17 23:47 BUN 12 mg/dL (7-18) 05/25/17 23:47 Creatinine 0.78 mg/dL (0.55-1.02) 05/25/17 23:47 Est GFR (MDRD) Af Amer > 60 (>60) 05/25/17 23:47 Est GFR (MDRD) Non-Af > 60 (>60) 05/25/17 23:47 Glucose 96 mg/dL (65-99) 05/25/17 23:47 Calcium 8.0 mg/dL (8.5-10.1) L 05/25/17 23:47 Corrected Calcium TNP 05/25/17 23:47 Total Bilirubin 0.20 mg/dL (0.2-1.0) 05/25/17 23:47 AST 21 Units/L (15-37) 05/25/17 23:47 ALT 23 Units/L (12-78) 05/25/17 23:47 Alkaline Phosphatase 72 Units/L (46-116) 05/25/17 23:47 Total Protein 7.8 g/dL (6.4-8.2) 05/25/17 23:47 Albumin 3.6 g/dL (3.4-5.0) 05/25/17 23:47 Globulin 4.2 g/dL (2.5-4.5) 05/25/17 23:47 Albumin/Globulin Ratio 0.9 Ratio (1.1-2.1) L 05/25/17 23:47 HCG, Qual Negative <10 mIU/mL 05/25/17 23:47 Specimen Type Clean catch urine 05/25/17 23:45 Urine Color Yellow (YELLOW) 05/25/17 23:45 Urine Appearance Hazy (CLEAR) 05/25/17 23:45 Urine pH 6.0 (5.0 - 8.0) 05/25/17 23:45 Ur Specific [place] 1.020 (1.000-1.030) 05/25/17 23:45 Urine Protein 2+ (NEGATIVE) 05/25/17 23:45 Urine Glucose (UA) Negative (NEGATIVE) 05/25/17 23:45 Urine Ketones 1+ (NEGATIVE) 05/25/17 23:45 Urine Occult Blood Negative (NEGATIVE) 05/25/17 23:45 Urine Nitrite Negative (NEGATIVE) 05/25/17 23:45 Urine Bilirubin 1+ (NEGATIVE) 05/25/17 23:45 Urine Urobilinogen 2+ (NORMAL) 05/25/17 23:45 Ur Leukocyte Esterase 3+ (NEGATIVE) 05/25/17 23:45 Urine RBC 5-10 /HPF (NONE SEEN) 05/25/17 23:45 Urine WBC 20-30 /HPF (NONE SEEN) 05/25/17 23:45 Ur Squamous Epith Cells Many /HPF (NEGATIVE) 05/25/17 23:45 Urine Bacteria 2+ /HPF (NEGATIVE) 05/25/17 23:45 Urine Mucus Moderate /HPF (NEGATIVE) 05/25/17 23:45 Ur Culture Indicated? Yes/culture set up 05/25/17 23:45 Salicylates < 2.8 mg/dL (2.8-20) L 05/25/17 23:47 Urine Opiates Screen Positive (NEG=<300) A 05/25/17 23:45 Urine Methadone Screen Negative (NEG=<300) 05/25/17 23:45 Acetaminophen 0.0 ug/mL (10-30) L 05/25/17 23:47 Ur Barbiturates Screen Negative (NEG=<200) 05/25/17 23:45 Ur Phencyclidine Scrn Negative (NEG=<25) 05/25/17 23:45 Ur Amphetamines Screen Negative (NEG=<1000) 05/25/17 23:45 U Benzodiazepines Scrn Positive (NEG=<200) A 05/25/17 23:45 Urine Cocaine Screen Negative (NEG=<300) 05/25/17 23:45 U Marijuana (THC) Screen Negative (NEG=<50) 05/25/17 23:45 Ethyl Alcohol mg/dL < 3 mg/dL (0-19.9) 05/25/17 23:47 - Diagnosis Discharge Problem: UTI (urinary tract infection), Hypokalemia, Depression, Suicidal ideations - Discharge Plan Condition: Stable - Follow ups/Referrals Follow ups/Referrals: NFD,None [Primary Care Provider] - 3 days - Instructions
[2017-05-25 23:58] LABS: BILIRUBIN,URINE 1+ (NEGATIVE); BLOOD/HEMOGLOBIN,URINE NEGATIVE (NEGATIVE); GLUCOSE, URINE NEGATIVE (NEGATIVE); KETONES,URINE 1+ (NEGATIVE); LEUKOCYTE ESTERASE ,URINE 3+ (NEGATIVE); NITRITES,URINE NEGATIVE (NEGATIVE); PROTEIN,URINE 2+ (NEGATIVE); UROBILINOGEN,URINE 2+ (NORMAL)
[2017-05-26 00:13] LABS: ALANINE AMINOTRANSFERASE 23 Units/L (12-78); ALBUMIN 3.6 g/dL (3.4-5.0); ALKALINE PHOSPHATASE 72 Units/L (46-116); ASPARTATE AMINO TRANSFERASE 21 Units/L (15-37); BLOOD ALCOHOL < 3 mg/dL (0-19.9); BLOOD UREA NITROGEN 12 mg/dL (7-18); CHLORIDE 107 mmol/L (98-107); CREATININE 0.78 mg/dL (0.55-1.02); SODIUM 143 mmol/L (136-145); TOTAL PROTEIN 7.8 g/dL (6.4-8.2); eGFR BLACK RACES > 60 (>60); eGFR NON BLACK RACES > 60 (>60)
[2017-05-26 00:18] LABS: APPEARANCE,URINE HAZY (CLEAR); BACTERIA,URINE 2+ /HPF (NEGATIVE); COLOR,URINE YELLOW (YELLOW); MUCUS,URINE MODERATE /HPF (NEGATIVE); SQUAMOUS EPITHELIAL CELL,UR MANY /HPF (NEGATIVE)
[2017-05-26 00:21] LABS: SERUM PREGNANCY TEST, QUAL NEGATIVE <10 mIU/mL
[2017-05-26 00:26] LABS: SALICYLATE < 2.8 mg/dL (2.8-20)
[2017-05-26] MEDS ORDERED: CIPRO TAB 500 MG PO ONE ×2 (00:44→00:53)
[2017-05-26] MEDS ORDERED: K-DUR TAB 20 MEQ PO ONE ×2 (00:45→00:53)
[2017-05-26] MEDS ORDERED: MOTRIN TAB 800 MG PO ONE ×2 (00:57→00:58)
[2017-05-26 11:24] VITALS: BP 109/58
== END 2017-05-26 13:52 ==
LOC: ER 23:06
DX: F32.89 Other specified depressive episodes (principal); R45.851 Suicidal ideations; N39.0 Urinary tract infection, site not specified; E87.6 Hypokalemia
CPT/HCPCS: 36415; 80053; 80307; 81001; 84703; 85025; 87086; 99282; 99285; G0434; G6038; G6039; G6040

== ENCOUNTER 2017-06-09 23:23 | Emergency (ER) | payer OTHER ==
[2017-06-09 23:45] VITALS: BMI 20.1
[2017-06-10 00:10] LABS: BASOPHILS % (AUTO) 0.6 % (0.2-1.0); EOSINOPHILS # (AUTO) 0.2 x10^3/uL (0.0-0.2); EOSINOPHILS % (AUTO) 2.6 % (0.9-2.9); HEMATOCRIT 37.4 % (36.0-47.0); HEMOGLOBIN 13.2 g/dL (12.0-16.0); LYMPHOCYTES # (AUTO) 2.3 X10^3/uL (1.3-2.9); MEAN CORPUSCULAR HEMOGLOBIN 28.1 pg (27.0-34.0); MEAN CORPUSCULAR HGB CONC 35.3 g/dL (33.0-35.0); MEAN CORPUSCULAR VOLUME 79.5 fL (80.0-100.0); MONOCYTES # (AUTO) 0.4 x10^3/uL (0.3-0.8); NEUTROPHILS # (AUTO) 4.2 x10^3/uL (2.2-4.8); NEUTROPHILS % (AUTO) 58.8 % (42.0-75.0); PLATELET COUNT 222 X10^3/uL (150.0-450.0); RED CELL DISTRIBUTION WIDTH 14.2 % (11.6-16.5); WHITE BLOOD COUNT 7.1 X10^3/uL (3.6-10.0)
[2017-06-10 00:19] LABS: SERUM PREGNANCY TEST, QUAL NEGATIVE <10 mIU/mL
[2017-06-10 00:22] LABS: ALANINE AMINOTRANSFERASE 25 Units/L (12-78); ALBUMIN 4.1 g/dL (3.4-5.0); ALKALINE PHOSPHATASE 79 Units/L (46-116); ASPARTATE AMINO TRANSFERASE 19 Units/L (15-37); BLOOD UREA NITROGEN 7 mg/dL (7-18); CALCIUM 8.8 mg/dL (8.5-10.1); CARBON DIOXIDE 29.6 mmol/L (21-32); CHLORIDE 104 mmol/L (98-107); COR NA(FOR HYPERGLY) 141 mmol/L (136-145); CREATININE 0.94 mg/dL (0.55-1.02); SODIUM 140 mmol/L (136-145); TOTAL PROTEIN 8.5 g/dL (6.4-8.2); eGFR BLACK RACES > 60 (>60); eGFR NON BLACK RACES > 60 (>60)
[2017-06-10 00:23] LABS: SALICYLATE 3.8 mg/dL (2.8-20)
[2017-06-10 00:27] LABS: BLOOD ALCOHOL < 3 mg/dL (0-19.9)
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
[2017-06-10 02:24] LABS: BILIRUBIN,URINE NEGATIVE (NEGATIVE); BLOOD/HEMOGLOBIN,URINE NEGATIVE (NEGATIVE); GLUCOSE, URINE NEGATIVE (NEGATIVE); KETONES,URINE NEGATIVE (NEGATIVE); LEUKOCYTE ESTERASE ,URINE 2+ (NEGATIVE); NITRITES,URINE NEGATIVE (NEGATIVE); PROTEIN,URINE NEGATIVE (NEGATIVE); UROBILINOGEN,URINE NORMAL (NORMAL)
[2017-06-10 02:35] LABS: APPEARANCE,URINE CLEAR (CLEAR); COLOR,URINE YELLOW (YELLOW); RBC,URINE 0-2 /HPF (NONE SEEN)
[2017-06-10 02:36] LABS: BACTERIA,URINE TRACE /HPF (NEGATIVE); SQUAMOUS EPITHELIAL CELL,UR FEW /HPF (NEGATIVE)
[2017-06-10] MEDS ORDERED: CIPRO TAB 500 MG PO ONE ×2 (04:28→04:32)
[2017-06-10 04:38] VITALS: BP 101/73
== END 2017-06-10 09:13 ==
LOC: ER 23:23
DX: R45.851 Suicidal ideations (principal)
CPT/HCPCS: 36415; 80053; 80307; 81001; 84703; 85025; 87086; 99282; 99285; G0434; G6038; G6039; G6040